=== PATIENT | female | born 1995 | race Caucasian/White ===

== ENCOUNTER 2020-02-23 10:15 | Day surgery (SDC) | payer BC, MEDICAID ==
[~2020-02-23 10:15] MED LIST: BUPIVACAINE 0.25% W/EPI 50 ML VIAL INJ ONE; DEXAMETHASONE INJ 10 MG/ML VIAL ONE; HEPARIN SODIUM (PORCINE) 10,000 UNITS/ML VIAL ONE; KETOROLAC TROMETHAMINE INJ 30 MG/ML VIAL ONE; LACTATED RINGERS 1,000 ML ONE; LIDOCAINE 1% 10 ML VIAL INJ ONE; MAGNESIUM SULFATE INJ 1 GM/2 ML VIAL ONE; PROPOFOL 200 MG/20 ML VIAL IV ONE; SODIUM CHL 0.9% 100ML MINI-BAG 100 ML IVPB ONE; ceFAZolin SODIUM 1 GM VIAL ONE; diphenhydrAMINE HCL 50 MG/ML VIAL ONE
[2020-02-23] MEDS ORDERED: KETAMINE HCL 100 MG/ML VIAL ONE (11:52)
[2020-02-23] MEDS ORDERED: SUGAMMADEX SODIUM 200 MG/2 ML VIAL IV ONE (11:52)
[2020-02-23] MEDS ORDERED: DEXMEDETOMIDINE HCL 200 MCG/2 ML INJ IV ONE (11:52)
[2020-02-23] MEDS ORDERED: MIDAZOLAM INJ 2 MG/2 ML VIAL ONE (11:52)
[2020-02-23] MEDS ORDERED: fentaNYL CITRATE INJ 50 MCG/ML 2 ML AMP ONE ×2 (11:53→13:26)
[2020-02-23] MEDS ORDERED: ROCURONIUM BROMIDE 10 MG/ML VIAL ONE (11:53)
[2020-02-23] MEDS ORDERED: FAMOTIDINE INJ 10 MG/ML VIAL IV ONE (11:53)
[2020-02-23] MEDS ORDERED: HEPARIN SODIUM (PORCINE) 10,000 UNITS/ML VIAL IRRIG ONE (12:06)
[2020-02-23] MEDS ORDERED: BUPIVACAINE 0.25% W/EPI 50 ML VIAL INJ ONE (12:06)
[2020-02-23] MEDS ORDERED: LACTATED RINGERS 300 ML IVS ONE (13:38)
--- NOTE | 2020-02-23 14:03 | OP ---
DATE OF PROCEDURE: 02/23/20 PREOPERATIVE DIAGNOSIS: 1. Symptomatic cholelithiasis. POSTOPERATIVE DIAGNOSIS: 1. Symptomatic cholelithiasis. 2. Chronic cholecystitis. PROCEDURE: 1. Laparoscopic cholecystectomy with attempted intraoperative cholangiography. SURGEON: Tano Guo MD. TREE CLIMBER: None. ANESTHESIA: Local infiltration of 0.25% Marcaine with epinephrine and general endotracheal anesthesia. INDICATION: The patient is a 24-year-old female who is and has fatty food intolerance with right upper quadrant pain and radiation to the back and nausea. She has CT positive gallstones. The patient was brought to the Surgical Suite today for cholecystectomy after the risks, benefits and alternatives to the procedure were discussed and accepted. FINDINGS: The gallbladder was distended with thickened wall. There was minimal inflammation to the neck of the gallbladder. There was a stone in the neck of the gallbladder. The cystic duct was extremely small and I was unable to cannulate a cholangiogram catheter. DESCRIPTION OF PROCEDURE: After adequate general endotracheal anesthesia was obtained in the supine position, the patient was prepped and draped in the usual sterile manner. Surgical time-out was taken. The infraumbilical area was infiltrated with local anesthesia. A curvilinear incision was fashioned with a sharp knife and dissection was carried down through the skin to the midline fascia. Traction sutures were placed on either side of the midline. A small incision was made in the midline fascia and the peritoneum was opened bluntly. Justine trocar was introduced under direct vision into the abdominal cavity and fixed in place with the 20 mL balloon. CO2 was then insufflated until a pressure of 12 mmHg was reached and the abdomen was tympanitic in all four quadrants. When this was done, the laparoscope was introduced. The abdomen was inspected with the previously noted findings. At this point, the upper abdominal ports were placed under direct vision with the patient in the foot down position and turned to her left side. The gallbladder was grasped, retracted anteriorly and laterally. The neck of the gallbladder was grasped and the adhesions to the neck of the gallbladder were taken down using blunt dissection. When this was done, the triangle of Calot was explored with the cystic duct and cystic artery identified and isolated. The cystic duct was hemoclipped once proximally. A small incision was made in the cystic duct and after multiple attempts, the cholangiogram would have been introduced through a separate stab wound in the right upper quadrant, but was unable to pass, so the cystic duct was clipped three times distally and divided between the hemoclips. The cystic artery was dissected free and clipped twice proximally and once distally and then divided. The gallbladder was then dissected free from the gallbladder bed of the liver using electrocautery with no significant difficulties. The gallbladder was placed in an EndoCatch bag and removed from the infraumbilical port site in the usual manner under direct vision. When this was done, the subhepatic space and subphrenic space were irrigated copiously with saline. The adriana hepatis was inspected and no bleeding or bile leak was identified. The gallbladder bed of the liver had no significant bleeding. At this point, the upper abdominal ports were removed under direct vision and adequate hemostasis was noted there. At this point, the CO2, the laparoscope and the infraumbilical port were removed. The infraumbilical port site fascia was approximated with a single [id number] suture of 0 Vicryl. Subcutaneous tissue was irrigated with saline. Skin edges were approximated with 4-0 Vicryl subcuticular sutures, benzoin and Steri-Strips. Sterile dressings were applied. The patient was awakened and taken to the Recovery Room in good and stable condition. Estimated blood loss was less than 25 mL. All sponge, needle and instrument counts were correct. #[id number] [facility]
[2020-02-23] MEDS ORDERED: traMADol HCL 50 MG TAB ONE (14:24)
[2020-02-23 15:22] VITALS: BP 109/71; TEMP 96.9; O2SAT 100
== END 2020-02-23 15:17 | disposition home or self-care (01) ==
LOC: AMB 10:15
PROVIDERS: ATTEND Surgery
DX: K80.10 Calculus of gallbladder with chronic cholecystitis without obstruction (principal); K59.09 Other constipation; Z79.899 Other long term (current) drug therapy
CPT/HCPCS: 00790; 36415; 47563; 80053; 81001; 81025; 85025; 88304; J0690; J1100; J1200; J1644; J1885; J2250; J3010; J3475; J3490; J7050; J7120